=== PATIENT | female | born 1955 | race Caucasian/White ===

== ENCOUNTER → 2017-01-22 | Outpatient (REF) | payer OTHER ==
[~2017-01-22] MED LIST: CALC-852 PO; CEF300 PO; CIPR-214 PO; CIPR-344 PO; CIPR500S3 PO; FLUC200T52 PO; LOR5/325 PO; NITR-105 PO; OSIM80TA PO; [UNRECOGNIZED DRUG - CODE] PO; [UNRECOGNIZED DRUG - OTHER]; [UNRECOGNIZED DRUG - OTHER] PO; [UNRECOGNIZED DRUG - OTHER] PO
== END ==
LOC: ZZSENDIN 12:00
PROVIDERS: ATTEND Nurse Practitioner Family
DX: C78.00 Secondary malignant neoplasm of unspecified lung (principal)
CPT/HCPCS: 81001

== ENCOUNTER → 2017-04-09 | Outpatient (CLI) | payer OTHER ==
[2017-04-09 10:38] VITALS: BP 97/65
[2017-04-09 10:43] LABS: PLATELET COUNT, AUTOMATED 169 K/uL (150-450)
== END ==
LOC: SPU 07:48
PROVIDERS: ATTEND Internal Medicine Medical Oncology
DX: C34.01 Malignant neoplasm of right main bronchus (principal); C79.31 Secondary malignant neoplasm of brain; D63.0 Anemia in neoplastic disease; Z79.899 Other long term (current) drug therapy
CPT/HCPCS: 36415; 82040; 82247; 82310; 82374; 82378; 82435; 82565; 82947; 84075; 84132; 84155; 84295; 84450; 84460; 84520; 85025

== ENCOUNTER → 2017-05-27 | Outpatient (CLI) | payer OTHER ==
[2017-05-27 09:46] LABS: PLATELET COUNT, AUTOMATED 145 K/uL (150-450)
[2017-05-27 10:28] VITALS: BP 127/86
== END ==
LOC: SPU 09:29
PROVIDERS: ATTEND Internal Medicine Pulmonary Disease
DX: C34.01 Malignant neoplasm of right main bronchus (principal); N30.00 Acute cystitis without hematuria
CPT/HCPCS: 36415; 82040; 82247; 82310; 82374; 82378; 82435; 82565; 82947; 84075; 84132; 84155; 84295; 84450; 84460; 84520; 85025

== ENCOUNTER → 2017-07-05 | Outpatient (CLI) | payer OTHER | LOC: SPU 12:26 | PROVIDERS: ATTEND Nurse Practitioner Primary Care | DX: C34.90 Malignant neoplasm of unspecified part of unspecified bronchus or lung (principal) | CPT/HCPCS: 81001; 87088 ==

== ENCOUNTER 2017-08-05 10:00 | Outpatient (RCR) | payer OTHER ==
[2017-07-12 09:34] VITALS: BP 92/61
--- NOTE | 2017-07-12 12:39 | ONCOLOGY FOLLOW UP NOTE ---
EVENT DATE: July 12, 2017 DIAGNOSES 1. Metastatic non-small cell lung cancer, adenocarcinoma, nonsmoker. 2. Multiple pulmonary metastasis. 3. Bone metastasis. 4. Brain metastasis, status post radiation therapy November 2014. 5. Leptomeningeal carcinomatosis. CHIEF COMPLAINT The patient is here today for followup of her lung cancer. ONCOLOGY HISTORY The patient is a 62-year-old female nonsmoker who developed mild sore throat discomfort and pain in September 2011, which prompted a CT of neck. Interestingly , her CT of neck showed no abnormality in the neck, but multiple lung nodules. Dedicated CT of chest showed predominant lesion in the right lower lobe of size 2.5 cm as well as multiple bilateral pulmonary nodules. CT guided biopsy of the dominant lesion came back positive for well-differentiated adenocarcinoma. 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 ALK gene rearrangement was negative. CT of abdomen showed no intra-abdominal lesions, but multiple sclerotic spine lesions. PET/ CT scan showed right lower lobe PET avid lesion, but no uptake in other lung lesions or bone lesions, although all lung nodules were 5 cm or smaller. Sclerotic bone lesions did not show any PET activity. She had an MRI of the brain which did not show any metastatic lesion. She started Tarceva 150 mg daily in October 2011. Her subsequent scan in December 2011 showed improvement in the larger dominant pulmonary nodule as well as all the small pulmonary nodules. Some of those nodules actually disappeared. Bone sclerotic lesions also favored treatment response. She developed grade II to III rash initially, with improved with time. The rash did not respond much to minocycline or clindamycin topical, but to topical hydrocortisone. A subsequent scan February 2012, April 2012 and July 2012 showed persistent treatment response. On November 12, 2012 her scans showed stable disease compared to July 2014 without any new nodules. T12 vertebral body lesion was stable compared to July 2012, but slightly enlarged compared to the baseline in September 2012. The patient was maintained on Tarceva for nearly 2-1/2 years. The patient showed evidence to T790M mutation, and she was included in the [facility] Third Generation EGFR inhibitor drug, and she was maintained on that drug so far. As per patient, her disease is stable currently. She had an MRI of the brain in November 2014 which showed numerous diffuse punctate enhancing foci throughout the infratentorial and supratentorial brain, for which the patient received radiation therapy to the brain November 2014 over a one week period. The patient would like to establish care in case she needs chemotherapy in the future so she can do it here in [place], [place] rather than going to [place]. The patient in January 2016 developed bladder infection and her blood sugar was very high, so the patient was taken off [facility] trial due to toxicity and cataract development. She was found to have leptomeningeal involvement and that is why the patient started treatment with Tagrisso double dose 160 mg daily because of her leptomeningeal involvement. HISTORY OF PRESENT ILLNESS The patient is here today for followup of her metastatic non-small cell lung cancer. She is currently on Tagrisso double dose, and she is doing fine and tolerating treatment well so far. She has some nasal discharge. She has dry throat from her aggressive therapy as well as diarrhea from Tagrisso. She lately has recurrent UTIs and her urinalysis showed mild elevation of the leukocyte esterase in the urine, so a culture was obtained which showed 50,000 to 75,000 colony-forming units mainly of bacterial garett and skin. Treated with antibiotic with improvement. She has also some weakness, tiredness and fatigue. PAST MEDICAL HISTORY Adenocarcinoma of the lung, stage IV in nonsmoker, diagnosed September 2011. PAST SURGICAL HISTORY C section, elbow surgery, right broken ankle surgery, arthroscopic knee surgery bilaterally. FAMILY HISTORY Mother had small cell lung cancer and was a smoker. Maternal aunt had also small cell lung cancer. Paternal aunt had ovarian cancer. Paternal uncle with brain cancer. SOCIAL HISTORY The patient is with two children. She is a homemaker. She is a nonsmoker. She drinks occasionally. Denies any abuse of illicit drugs. CURRENT MEDICATIONS 1. Multivitamins. 2. Tagrisso 160 mg daily. ALLERGY No known drug allergy. REVIEW OF SYSTEMS CONSTITUTIONAL: No appetite or weight change. No fever, chills or sweating. No recent infection. HEENT: Ears: No tinnitus or hearing problem. Nose: She has nasal discharge. Throat: She has dry throat from Tagrisso. Eyes: No diplopia or visual changes. RESPIRATORY: No shortness of breath. No cough, expectoration or hemoptysis. CARDIOVASCULAR: No chest pain, orthopnea, or paroxysmal nocturnal dyspnea (PND) . No edema. No palpitations. GASTROINTESTINAL: No nausea or vomiting. She has diarrhea from Tagrisso. No constipation. No change in bowel movements. No heartburn or swallowing difficulties. No abdominal pain. No jaundice. No hematemesis, melena or rectal bleeding. GENITOURINARY: No hematuria or dysuria. She has recurrent UTIs treated with Keflex. MUSCULOSKELETAL: No pain in the muscles, joints or bones. NEUROLOGICAL: No tingling or numbness in the hands or feet. No headaches or convulsions. HEMATOLOGIC/LYMPHATIC: No bleeding or easy bruising. She is weak, tired and fatigued. No enlarged lymph nodes. SKIN: No skin rash or lumps. PSYCHIATRIC: No anxiety or depression. PHYSICAL EXAMINATION GENERAL: Looks stable. Well-developed, well-nourished, and in no acute distress. VITAL SIGNS: Blood pressure 92/61, pulse 72 per minute, respirations 16 per minute, temperature 96.9, pulse oximetry 97% on room air. HEENT: Head: Atraumatic. No sinus tenderness to palpation. Eyes: No icterus or conjunctivitis. Mouth and throat: No oral thrush or mucositis. NECK: Supple. No cervical or supraclavicular lymphadenopathy. LUNGS: Clear to auscultation and percussion bilaterally. HEART: Regular rate and rhythm. No gallops, murmurs, clicks or rubs. ABDOMEN: Soft and lax. No tenderness. No hepatosplenomegaly. No masses. EXTREMITIES: No cyanosis, clubbing or edema. LYMPHATICS: No peripheral lymphadenopathy. NEUROLOGICAL: Conscious, alert and oriented times three. No focal motor or sensory deficits. PSYCHIATRIC: Mood and affect appear normal. SKIN: No skin rash, bruise or purpuric eruption. DIAGNOSTIC DATA MRI of the brain done on July 08, [address] chest and abdomen done on July 08, 2017 showed stable pulmonary nodules and sclerotic osseous metastasis. CEA showed mild increase. It was 9.7 in November 2016, then 10.3 in March 2017 and in May 2017 it was 11.5. Chem panel was normal in May, except BUN 28. CBC in May 2017 showed white count 3.9, hemoglobin 13, hematocrit 37.8, platelets 145,000. ASSESSMENT 1. 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 The patient has resistance with T790M mutation and the patient included initially in [facility] trial, but initially she was treated with Tarceva since she was diagnosed in September 2011 and she received Tarceva until 2014, when she was put on the [facility] trial, which was discontinued because of toxicity in 2015. She received whole brain radiation therapy November 2014 for enhanced foci in the brain and she started treatment with double dose Tagrisso at 160 mg daily January 2016. She showed response to her treatment with improvement in her MRI of the brain after starting the treatment. She had recently MRI of the brain and CT chest, abdomen done on July 08, 2017 at [facility] and they did not show any progression of her disease, despite the fact she has mild rise of her CEA. I am planning to see her once a year per her request as the patient is followed at the [facility]. 2. Multiple pulmonary metastases due to adenocarcinoma of the lung. 3. Brain metastasis, status post radiation therapy November 2014. 4. Bone metastasis due to adenocarcinoma of the lung. 5. Leptomeningeal carcinomatosis treated with whole brain radiation. PLAN 1. Continue followup. 2. Patient to continue followup at [facility]. 3. Patient to return in one year with CBC, chem panel, CEA. 4. Patient to contact us for any new concerns or complaints. MTDD
[2017-08-05 10:00] VITALS: BP 99/83
[2017-08-05 10:25] LABS: PLATELET COUNT, AUTOMATED 154 K/uL (150-450)
== END 2017-08-16 10:22 | disposition home or self-care (01) ==
LOC: SPU 10:00
PROVIDERS: ATTEND Internal Medicine Hematology
DX: C34.31 Malignant neoplasm of lower lobe, right bronchus or lung (principal); C79.51 Secondary malignant neoplasm of bone; C79.31 Secondary malignant neoplasm of brain; Z92.3 Personal history of irradiation; R19.7 Diarrhea, unspecified; R53.1 Weakness; R53.83 Other fatigue
CPT/HCPCS: 36415; 82040; 82247; 82310; 82374; 82378; 82435; 82565; 82947; 84075; 84132; 84155; 84295; 84450; 84460; 84520; 85025; 99212

== ENCOUNTER → 2017-08-09 | Outpatient (CLI) | payer OTHER | LOC: LAB 16:03 | PROVIDERS: ATTEND Urology | DX: N39.0 Urinary tract infection, site not specified (principal) | CPT/HCPCS: 81001; 87088 ==

== ENCOUNTER → 2017-08-19 | Outpatient (CLI) | payer OTHER | LOC: SPU 07:36 | PROVIDERS: ATTEND Urology | DX: N39.0 Urinary tract infection, site not specified (principal) | CPT/HCPCS: 81001; 87088 ==

== ENCOUNTER → 2017-08-21 | Outpatient (CLI) | payer OTHER | LOC: SPU 10:15 | PROVIDERS: ATTEND Urology | DX: N39.0 Urinary tract infection, site not specified (principal) | CPT/HCPCS: 81001; 87088 ==

== ENCOUNTER → 2017-10-07 | Outpatient (CLI) | payer OTHER ==
[2017-10-07 10:35] LABS: PLATELET COUNT, AUTOMATED 173 K/uL (150-450)
== END ==
LOC: SPU 08:42
PROVIDERS: ATTEND Internal Medicine Medical Oncology
DX: C34.01 Malignant neoplasm of right main bronchus (principal)
CPT/HCPCS: 36415; 82040; 82247; 82310; 82374; 82378; 82435; 82565; 82947; 84075; 84132; 84155; 84295; 84450; 84460; 84520; 85025

== ENCOUNTER → 2017-11-20 | Outpatient (CLI) | payer OTHER | LOC: SPU 12:01 | PROVIDERS: ATTEND Urology | DX: R35.0 Frequency of micturition (principal) | CPT/HCPCS: 81001; 87088 ==

== ENCOUNTER → 2017-12-09 | Outpatient (CLI) | payer OTHER ==
[2017-12-09 08:02] VITALS: BP 145/82
[2017-12-09 11:10] VITALS: BP 130/72
[2017-12-09 11:11] LABS: PLATELET COUNT, AUTOMATED 156 K/uL (150-450)
== END ==
LOC: SPU 06:45
PROVIDERS: ATTEND Internal Medicine Medical Oncology
DX: C34.01 Malignant neoplasm of right main bronchus (principal)
CPT/HCPCS: 36415; 82040; 82247; 82310; 82374; 82378; 82435; 82565; 82947; 84075; 84132; 84155; 84295; 84450; 84460; 84520; 85025; 86300; 86301; 86304

== ENCOUNTER 2018-03-05 15:43 | Outpatient (RCR) | payer OTHER ==
[2018-03-06 10:41] VITALS: BP 99/70
--- NOTE | 2018-03-06 15:24 | [facility] ONCOLOGY NOTE ---
EVENT DATE: March 06, 2018 DIAGNOSES 1. Metastatic non-small cell lung cancer, adenocarcinoma, nonsmoker. 2. Multiple pulmonary metastasis. 3. Bone metastasis. 4. Brain metastasis, status post radiation therapy November 2014. 5. Leptomeningeal carcinomatosis. CHIEF COMPLAINT The patient is here today for followup of her lung cancer. ONCOLOGY HISTORY The patient is a 62-year-old female nonsmoker who developed mild sore throat discomfort and pain in September 2011, which prompted a CT of neck. Interestingly, her CT of neck showed no abnormality in the neck, but multiple lung nodules. Dedicated CT of chest showed predominant lesion in the right lower lobe of size 2.5 cm as well as multiple bilateral pulmonary nodules. CT guided biopsy of the dominant lesion came back positive for well-differentiated adenocarcinoma. 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 ALK gene rearrangement was negative. CT of abdomen showed no intra-abdominal lesions, but multiple sclerotic spine lesions. PET/CT scan showed right lower lobe PET avid lesion, but no uptake in other lung lesions or bone lesions, although all lung nodules were 5 cm or smaller. Sclerotic bone lesions did not show any PET activity. She had an MRI of the brain which did not show any metastatic lesion. She started Tarceva 150 mg daily in October 2011. Her subsequent scan in December 2011 showed improvement in the larger dominant pulmonary nodule as well as all the small pulmonary nodules. Some of those nodules actually disappeared. Bone sclerotic lesions also favored treatment response. She developed grade II to III rash initially, with improved with time. The rash did not respond much to minocycline or clindamycin topical, but to topical hydrocortisone. A subsequent scan February 2012, April 2012 and July 2012 showed persistent treatment response. On November 12, 2012 her scans showed stable disease compared to July 2014 without any new nodules. T12 vertebral body lesion was stable compared to July 2012, but slightly enlarged compared to the baseline in September 2012. The patient was maintained on Tarceva for nearly 2-1/2 years. 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 As per patient, her disease is stable currently. She had an MRI of the brain in November 2014 which showed numerous diffuse punctate enhancing foci throughout the infratentorial and supratentorial brain, for which the patient received radiation therapy to the brain November 2014 over a one week period. The patient would like to establish care in case she needs chemotherapy in the future so she can do it here in [place], [place] rather than going to [place]. The patient in January 2016 developed bladder infection and her blood sugar was very high, so the patient was taken off [facility] trial due to toxicity and cataract development. She was found to have leptomeningeal involvement and that is why the patient started treatment with Tagrisso double dose 160 mg daily because of her leptomeningeal involvement. HISTORY OF PRESENT ILLNESS The patient is here today for followup of her metastatic non-small cell lung cancer with adenocarcinoma. She was maintained on Tagrisso double dose. Recently, her CT scan showed mild progression of one of the pulmonary nodules increased in size by about 4 mm and patient is scheduled to have a PET scan and possible biopsy for further evaluation and management. She is currently doing very well. She feels that her memory and sharpness of her thinking is a little bit dull lately. PAST MEDICAL HISTORY Adenocarcinoma of the lung, stage IV in nonsmoker, diagnosed September 2011. PAST SURGICAL HISTORY C section, elbow surgery, right broken ankle surgery, arthroscopic knee surgery bilaterally. FAMILY HISTORY Mother had small cell lung cancer and was a smoker. Maternal aunt had also small cell lung cancer. Paternal aunt had ovarian cancer. Paternal uncle with brain cancer. SOCIAL HISTORY The patient is with two children. She is a homemaker. She is a nonsmoker. She drinks occasionally. Denies any abuse of illicit drugs. CURRENT MEDICATIONS 1. Multivitamins. 2. Tagrisso 160 mg daily. ALLERGIES No known drug allergy. REVIEW OF SYSTEMS CONSTITUTIONAL: No appetite or weight change. No fever, chills or sweating. No recent infection. HEENT: Ears: No tinnitus or hearing problem. Nose: She has nasal discharge. Throat: She has dry throat from Tagrisso. Eyes: No diplopia or visual changes. RESPIRATORY: No shortness of breath. No cough, expectoration or hemoptysis. CARDIOVASCULAR: No chest pain, orthopnea, or paroxysmal nocturnal dyspnea (PND). No edema. No palpitations. GASTROINTESTINAL: No nausea or vomiting. She has diarrhea from Tagrisso. No constipation. No change in bowel movements. No heartburn or swallowing difficulties. No abdominal pain. No jaundice. No hematemesis, melena or rectal bleeding. GENITOURINARY: No hematuria or dysuria. She has recurrent UTIs treated with Keflex. MUSCULOSKELETAL: No pain in the muscles, joints or bones. NEUROLOGICAL: No tingling or numbness in the hands or feet. No headaches or convulsions. HEMATOLOGIC/LYMPHATIC: No bleeding or easy bruising. She is weak, tired and fatigued. No enlarged lymph nodes. SKIN: No skin rash or lumps. PSYCHIATRIC: No anxiety or depression. PHYSICAL EXAMINATION GENERAL: Looks stable. Well-developed, well-nourished, and in no acute distress. VITAL SIGNS: Blood pressure 99/70, pulse 78 per minute, respirations 16 per minute, temperature 96.6, pulse oximetry 96% on room air. HEENT: Head: Atraumatic. No sinus tenderness to palpation. Eyes: No icterus or conjunctivitis. Mouth and throat: No oral thrush or mucositis. NECK: Supple. No cervical or supraclavicular lymphadenopathy. LUNGS: Clear to auscultation and percussion bilaterally. HEART: Regular rate and rhythm. No gallops, murmurs, clicks or rubs. ABDOMEN: Soft and lax. No tenderness. No hepatosplenomegaly. No masses. EXTREMITIES: No cyanosis, clubbing or edema. LYMPHATICS: No peripheral lymphadenopathy. NEUROLOGICAL: Conscious, alert and oriented times three. No focal motor or sensory deficits. PSYCHIATRIC: Mood and affect appear normal. SKIN: No skin rash, bruise or purpuric eruption. DIAGNOSTIC DATA White count 3.7, hemoglobin 13.2, hematocrit 39.7, platelets 169,000. CEA is 13.6, up from 11.4. Chem panel showed BUN 25. ASSESSMENT 1. 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 The patient had resistance with T790M mutation and the patient included initially in [facility] trial but initially she was treated with Tarceva since she was diagnosed in September 2011 and she received Tarceva until 2014, when she was put on the [facility] trial, which was discontinued because of toxicity in 2016. She received whole brain radiation therapy November 2014 for enhanced foci in the brain and she started treatment with double- dose Tagrisso at 160 mg daily January 2016. She showed response to her treatment and improvement in her MRI of the brain. She had recent CT chest, abdomen and pelvis, which showed mild slow progression in one of the pulmonary nodules, which increased by about 4 mm but her brain is still stable. Patient is scheduled to have the PET scan and biopsy of this enlarging nodule. Patient had a discussion with her oncologist at [facility] with recommendation of carboplatin, pemetrexed and Keytruda versus carboplatin, Taxol, Avastin or Tecentriq or if the biopsy will show any target to be targeted in the future this will be the plan. I am planning to await those results and if the patient can have her chemotherapy here locally [facility] [place] we will be more than happy to do it but she will be included in a clinical trial she will continue her treatment in [facility]. I am planning to see her after she will get those results to decide about further management. 2. Multiple pulmonary metastases due to adenocarcinoma of the lung. 3. Brain metastasis, status post radiation therapy November 2014. 4. Leptomeningeal carcinomatosis, treated with whole brain radiation. 5. Bone metastasis due to adenocarcinoma of the lung. PLAN 1. Continue followup. 2. Patient to return after the PET scan and biopsy of the lung nodule for further evaluation and management. 3. Patient to contact us for any new concerns or complaints. MTDD
== END 2018-03-31 07:42 | disposition home or self-care (01) ==
LOC: SPU 15:43
PROVIDERS: ATTEND Internal Medicine Hematology
DX: C34.31 Malignant neoplasm of lower lobe, right bronchus or lung (principal); C79.51 Secondary malignant neoplasm of bone; C79.31 Secondary malignant neoplasm of brain; Z92.3 Personal history of irradiation; R19.7 Diarrhea, unspecified; R53.1 Weakness; R53.83 Other fatigue
CPT/HCPCS: 99212

== ENCOUNTER 2018-07-04 10:30 | Outpatient (RCR) | payer OTHER ==
[2018-07-04 10:51] VITALS: BP 117/73
--- NOTE | 2018-07-04 14:52 | ONCOLOGY FOLLOW UP NOTE ---
EVENT DATE: July 04, 2018 DIAGNOSES 1. Metastatic non-small cell lung cancer, adenocarcinoma, nonsmoker. 2. Multiple pulmonary metastasis. 3. Bone metastasis. 4. Brain metastasis, status post radiation therapy November 2014. 5. Leptomeningeal carcinomatosis. CHIEF COMPLAINT The patient is here today for followup of her lung cancer. ONCOLOGY HISTORY The patient is a 63-year-old female nonsmoker who developed mild sore throat discomfort and pain in September 2011, which prompted a CT of neck. Interestingly, her CT of neck showed no abnormality in the neck, but multiple lung nodules. Dedicated CT of chest showed predominant lesion in the right lower lobe of size 2.5 cm as well as multiple bilateral pulmonary nodules. CT-guided biopsy of the dominant lesion came back positive for well-differentiated adenocarcinoma. 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 ALK gene rearrangement was negative. CT of abdomen showed no intra-abdominal lesions, but multiple sclerotic spine lesions. PET/CT scan showed right lower lobe PET-avid lesion, but no uptake in other lung lesions or bone lesions, although all lung nodules were 5 mm or smaller. Sclerotic bone lesions did not show any PET activity. She had an MRI of the brain which did not show any metastatic lesion. She started Tarceva 150 mg daily in October 2011. Her subsequent scan in December 2011 showed improvement in the larger dominant pulmonary nodule as well as all the small pulmonary nodules. Some of those nodules actually disappeared. Bone sclerotic lesions also favored treatment response. She developed grade 2 to 3 rash initially, with improved with time. The rash did not respond much to minocycline or clindamycin topical, but to topical hydrocortisone. Subsequent scans February 2012, April 2012, and July 2012 showed persistent treatment response. On November 12, 2012, her scans showed stable disease compared to July 2014 without any new nodules. T12 vertebral body lesion was stable compared to July 2012, but slightly enlarged compared to the baseline in September 2012. The patient was maintained on Tarceva for nearly 2-1/2 years. 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 As per patient, her disease is stable currently. She had an MRI of the brain in November 2014 which showed numerous diffuse, punctate, enhancing foci throughout the infratentorial and supratentorial brain, for which the patient received radiation therapy to the brain November 2014 over a one-week period. The patient would like to establish care in case she needs chemotherapy in the future so she can do it here in [place], [place], rather than going to [place]. The patient in January 2016 developed bladder infection, and her blood sugar was very high, so the patient was taken off the Darius trial due to toxicity and cataract development. She was found to have leptomeningeal involvement, and that is why the patient started treatment with Tagrisso double dose 160 mg daily because of her leptomeningeal involvement. HISTORY OF PRESENT ILLNESS The patient is here today for followup of her metastatic non-small cell lung cancer with adenocarcinoma. Patient is maintained on Tagrisso double dose. She received radiation therapy for her enlarging lesions, but she continued on Tagrisso. She is doing fine currently except for some fatigue she attributed to Tagrisso therapy. PAST MEDICAL HISTORY Adenocarcinoma of the lung stage IV in nonsmoker, diagnosed September 2011. PAST SURGICAL HISTORY 1. . 2. Elbow surgery. 3. Right broken ankle surgery. 4. Arthroscopic knee surgery bilaterally. SOCIAL HISTORY The patient is with two children. She is a homemaker. She is a nonsmoker. She drinks occasionally. Denies any abuse of illicit drugs. FAMILY HISTORY Mother had small-cell lung cancer and was a smoker. Maternal aunt had also small-cell lung cancer. Paternal aunt had ovarian cancer. Paternal uncle with brain cancer. CURRENT MEDICATIONS 1. Multivitamins. 2. Tagrisso 160 mg daily. ALLERGIES No known drug allergy. REVIEW OF SYSTEMS CONSTITUTIONAL: No appetite or weight change. No fever, chills, or sweating. No recent infection. HEENT: Ears: No tinnitus or hearing problem. Nose: No nasal discharge or epistaxis. Throat: No sore throat or mouth ulcers. Eyes: No diplopia or visual changes. RESPIRATORY: No shortness of breath. No cough, expectoration, or hemoptysis. CARDIOVASCULAR: No chest pain, orthopnea, or paroxysmal nocturnal dyspnea (PND). No edema. No palpitations. GASTROINTESTINAL: No nausea or vomiting. No diarrhea or constipation. No change in bowel movements. No heartburn or swallowing difficulties. No abdominal pain. No jaundice. No hematemesis, melena, or rectal bleeding. GENITOURINARY: No hematuria or dysuria. MUSCULOSKELETAL: No pain in the muscles, joints, or bones. NEUROLOGIC: No tingling or numbness in the hands or feet. No headaches or convulsions. HEMATOLOGIC/LYMPHATIC: No bleeding or easy bruising. Patient has fatigue from Tagrisso. No enlarged lymph nodes. SKIN: No skin rash or lumps. PSYCHIATRIC: No anxiety or depression. PHYSICAL EXAMINATION GENERAL: Looks stable. Well developed, well nourished, and in no acute distress. VITAL SIGNS: Blood pressure 115/73, pulse 67 per minute, respirations 16 per minute, temperature 97, pulse ox 96% on room air. HEENT: Head: Atraumatic. No sinus tenderness to palpation. Eyes: No icterus or conjunctivitis. Mouth and Throat: No oral thrush or mucositis. NECK: Supple. No cervical or supraclavicular lymphadenopathy. LUNGS: Clear to auscultation and percussion bilaterally. HEART: Regular rate and rhythm. No gallops, murmurs, clicks, or rubs. ABDOMEN: Soft and lax. No tenderness. No hepatosplenomegaly. No masses. EXTREMITIES: No cyanosis, clubbing, or edema. LYMPHATICS: No peripheral lymphadenopathy. NEUROLOGIC: Conscious, alert, and oriented times three. No focal motor or sensory deficits. PSYCHIATRIC: Mood and affect appear normal. SKIN: No skin rash, bruise, or purpuric eruption. DIAGNOSTIC DATA MRI of the brain done on the May showed no evidence of intracranial metastatic disease. ASSESSMENT 1. 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 Patient had resistance with T790M mutation, and the patient included initially in Darius trial, but initially, she was treated with Tarceva since she was diagnosed in September 2011, and she received Tarceva until 2014 when she was put on the Napavine trial, which was discontinued because of toxicity in 2016. She received whole brain radiation therapy November 2014 for enhancing foci in the brain, and she started treatment with double-dose Tagrisso at 160 mg daily January 2016. She showed response to her treatment and improvement in her MRI of the brain. She had recent CT chest, abdomen, and pelvis at [facility], which showed mild, slow progression in one of the pulmonary nodules which increased by about 4 mm, but her brain was still stable. She had a PET scan done on the February, which showed slight increase in the size of the right lower lobe pulmonary nodule with lower level FDG uptake and similar scattered subcentimeter pulmonary nodules. There was focal FDG uptake in the right hilar lymph node that is unchanged since the prior, suspicious for node and metastatic disease. There was a slow interval growth of several osseous sclerotic metastases including in the right humeral head and right femoral neck with low FDG uptake. Patient received radiation therapy for the active spots, and she was maintained on Tagrisso, and she is doing fine currently. Patient is continuing her followup at the [facility], and she will make arrangements to contact us here at any time she wants to see us here in [place]. 2. Multiple pulmonary metastases due to adenocarcinoma of the lung. 3. Brain metastases, status post radiation therapy November 2014. Her recent MRI of the brain done on the March 2018 did not show any evidence of intracranial metastatic disease. 4. Leptomeningeal carcinomatosis, treated with whole brain radiation. No evidence of recurrence by her recent MRI of the brain done on the May. 5. Bone metastases due to adenocarcinoma of the lung with some increased activity on some of the bones, which are getting irradiated currently. PLAN 1. Continue followup. 2. Patient to return when she calls for followup. 3. Patient to contact us for any new concerns or complaints. 4. Patient will continue followup at [facility], but when she reaches the point where she will receive chemotherapy, she prefers to have her chemotherapy done here in [place]. MTDD
== END 2018-08-25 14:53 | disposition home or self-care (01) ==
LOC: ONC 10:30
PROVIDERS: ATTEND Internal Medicine Hematology
DX: C34.31 Malignant neoplasm of lower lobe, right bronchus or lung (principal); C79.51 Secondary malignant neoplasm of bone; C79.31 Secondary malignant neoplasm of brain; C70.1 Malignant neoplasm of spinal meninges; R91.8 Other nonspecific abnormal finding of lung field; Z92.3 Personal history of irradiation
CPT/HCPCS: 99212

== ENCOUNTER → 2018-07-14 | Outpatient (CLI) | payer OTHER ==
[2018-07-14 09:52] VITALS: BP 108/66
[2018-07-14 10:06] LABS: PLATELET COUNT, AUTOMATED 175 K/uL (150-450)
== END ==
LOC: SPU 09:16
PROVIDERS: ATTEND Internal Medicine Medical Oncology
DX: C34.01 Malignant neoplasm of right main bronchus (principal); C79.31 Secondary malignant neoplasm of brain
CPT/HCPCS: 36415; 82040; 82247; 82310; 82374; 82378; 82435; 82565; 82947; 83615; 84075; 84132; 84155; 84295; 84450; 84460; 84520; 85025